=== PATIENT | male | born 1965 | race Caucasian/White ===

== ENCOUNTER 2021-09-04 07:24 | Emergency (ER) | payer OTHER ==
[2021-09-04 08:31] LABS: RED BLOOD COUNT 5.2 M/UL (4.20-5.50); WHITE BLOOD COUNT 4.4 K/UL (4.5-11.0)
[2021-09-04 08:55] LABS: BUN/CREATININE RATIO 13 (0-10)
[2021-09-04] MEDS ORDERED: ZOFRAN 4 MG TAB4 MG PO (10:42)
== END 2021-09-04 10:42 | disposition home or self-care (01) ==
LOC: ER1 07:24 → EDBD 07:24 → ER1 10:42
PROVIDERS: Physician Assistant
DX: U07.1 COVID-19 (principal); E11.9 Type 2 diabetes mellitus without complications; I10 Essential (primary) hypertension
CPT/HCPCS: 71045; 80053; 82550; 82553; 83874; 84484; 85025; 93005; 96374; 99284; J2405

== ENCOUNTER → 2021-09-05 | Outpatient (CLI) | payer OTHER ==
[~2021-09-05] VITALS: Ht 172.7 cm; Wt 104.3 kg
[~2021-09-05] MED LIST: ZOFRAN 4 MG TAB4 MG PO
== END ==
LOC: EROP 11:36
DX: U07.1 COVID-19 (principal); Z23 Encounter for immunization; E11.9 Type 2 diabetes mellitus without complications; I10 Essential (primary) hypertension
CPT/HCPCS: M0247; Q0247